=== PATIENT | female | born 1980 | race Caucasian/White ===

== ENCOUNTER → 2018-11-26 | Outpatient (CLI) | payer OTHER ==
[~2018-11-26] MED LIST: ALPR1 PO; FLUO10 PO
== END | disposition home or self-care (01) ==
LOC: LAB SHORT 12:46 → LAB EV 12:46
DX: N39.0 Urinary tract infection, site not specified (principal)
CPT/HCPCS: 87077; 87086; 87186

== ENCOUNTER 2019-04-15 16:38 | Inpatient (IN) | payer OTHER ==
[~2019-04-15] VITALS: Ht 157.5 cm; Wt 61.2 kg
[~2019-04-15 16:38] MED LIST changes: +Augmentin 500-1 EACH PO; +Norco 5-325 Ta1 EACH PO
[2019-04-15 17:25] LABS: BASOPHILS ABSOLUTE AUTO 0.09 K/mm3 (0.00-0.23); BASOPHILS PERCENT AUTO 1 % (0-2); EOSINOPHILS ABSOLUTE AUTO 0.11 K/mm3 (0.00-0.68); EOSINOPHILS PERCENT AUTO 1 % (0-6); Hematocrit 42.8 % (33.0-51.0); Hemoglobin 14.6 g/dL (11.5-16.0); IMMATURE GRAN ABSOLUTE AUTO 0.06 K/mm3 (0.00-0.10); IMMATURE GRAN PERCENT AUTO 0 % (0-1); LYMPHOCYTES ABSOLUTE AUTO 1.86 K/mm3 (0.84-5.20); LYMPHOCYTES PERCENT AUTO 11 % (21-46); MONOCYTES ABSOLUTE AUTO 0.93 K/mm3 (0.16-1.47); MONOCYTES PERCENT AUTO 6 % (4-13); Mean Corpuscular HGB 33.3 pg (26.0-34.0); Mean Corpuscular HGB Conc 34.1 g/dL (31.5-36.5); Mean Corpuscular Volume 98 fL (80-100); Mean Platelet Volume 9.9 fL (9.1-12.4); NEUTROPHILS ABSOLUTE AUTO 13.29 K/mm3 (1.96-9.15); NEUTROPHILS PERCENT AUTO 81 % (41-73); Platelet Count 289 K/mm3 (150-400); RDW Coefficient Variation 12.6 % (11.7-14.2); RDW Standard Deviation 45.6 fL (35.1-46.3); Red Blood Cell Count 4.39 M/mm3 (3.80-5.20); White Blood Cell Count 16.34 K/mm3 (4.00-11.30)
[2019-04-15 17:39] LABS: Alanine Aminotransfer (ALT/SGP 18 U/L (12-78); Albumin, Blood 4.2 g/dL (3.4-5.0); Albumin/Globulin Ratio 1.2 (0.8-1.8); Alk Phos 69 U/L (50-136); Anion Gap 5 mmol/L (6-16); Aspartate Aminotrans (AST/SGOT 14 U/L (12-37); Bilirubin, Total 0.7 mg/dL (0.1-1.0); Blood Urea Nitrogen 8 mg/dL (8-24); Bun/Creatinine Ratio 14.7 (12.0-20.0); CO2, Blood 26 mmol/L (21-32); Calcium, Blood 9.3 mg/dL (8.5-10.1); Chloride, Blood 105 mmol/L (98-108); Creatinine, Blood 0.55 mg/dL (0.40-1.00); Globulin, Blood 3.6 g/dL (2.2-4.0); Glomerular Filtration Rate >60 (60-); Glucose, Blood 87 mg/dL (70-99); Potassium, Blood 3.7 mmol/L (3.5-5.5); Sodium, Blood 136 mmol/L (136-145); Total Protein, Blood 7.8 g/dL (6.4-8.2)
--- NOTE | 2019-04-15 21:20 | NUR ---
PACU PATIENT ESTELLE PACU WELL REMAINS ON RA WITH OXYGEN SAT 98% RESP EVEN AND UNLABORED. NO NEED FOR PAIN OR NAUSEA MEDICATIONS DURING RECOVERY. DRESSING TO RIGHT HAND CD&I GOOD CAP REFIL TO FINGERS. REPORT CALLED TO MARIAMA CARPENTER
[2019-04-15] MEDS ORDERED: BUPR150ER PO (21:37)
[2019-04-15] MEDS ORDERED: LAMO25 PO (21:38)
--- NOTE | 2019-04-16 00:26 | NUR ---
POST OP: REPORT RECIEVED FROM MARKETING DIRECTOR ASSISTED LIVING KIM AT ABOUT 2127. PT TO ROOM AND ABLE TO AMBULATE TO BATHROOM, VOIDED. PT IS A/O, HR 111, OTHERWISE VSS. PT DOES REPORT PAIN AT R HAND, WILL MEDICATE. SURGICAL SITE WNL. WILL DO ADMISSION CHARTING AND ORIENT PT TO ROOM. PT AT BEDSIDE.
--- NOTE | 2019-04-16 04:45 | NUR ---
SUMMARY: NO ACUTE CHANGE SINCE ADMISSION. VSS, A/O. PT ABLE TO EAT SOME CRACKERS AND TAKE PO PAIN MED. NO NAUSEA. UP WITH SBA, VOIDING. R ARM ELEVATED. ANTIBIOTICS INFUSED. NO SAFETY CONCERNS AT THIS TIME
[2019-04-16 07:14] LABS: BASOPHILS ABSOLUTE AUTO 0.03 K/mm3 (0.00-0.23); BASOPHILS PERCENT AUTO 0 % (0-2); EOSINOPHILS PERCENT AUTO 0 % (0-6); Hemoglobin 12.7 g/dL (11.5-16.0); IMMATURE GRAN ABSOLUTE AUTO 0.05 K/mm3 (0.00-0.10); IMMATURE GRAN PERCENT AUTO 0 % (0-1); LYMPHOCYTES ABSOLUTE AUTO 0.84 K/mm3 (0.84-5.20); LYMPHOCYTES PERCENT AUTO 7 % (21-46); MONOCYTES PERCENT AUTO 4 % (4-13); Mean Corpuscular HGB 33.8 pg (26.0-34.0); Mean Corpuscular HGB Conc 34.3 g/dL (31.5-36.5); Mean Corpuscular Volume 98 fL (80-100); Mean Platelet Volume 9.6 fL (9.1-12.4); NEUTROPHILS PERCENT AUTO 89 % (41-73); Platelet Count 245 K/mm3 (150-400); RDW Coefficient Variation 12.6 % (11.7-14.2); Red Blood Cell Count 3.76 M/mm3 (3.80-5.20); White Blood Cell Count 12.82 K/mm3 (4.00-11.30)
--- NOTE | 2019-04-16 19:09 | NUR ---
SHIFT SUMMARY PAIN HAS BEEN MANAGED WITH PO PAIN MEDICATION THIS SHIFT. PT HAS ELEVATED HER R EXTREMITY FOR PAIN MANAGEMENT. PT IS INDEPENDENT IN THE ROOM. VSS. WILL MONITOR UNTIL REPORT TO ONCOMING RN.
[2019-04-17 04:42] LABS: BASOPHILS ABSOLUTE AUTO 0.07 K/mm3 (0.00-0.23); BASOPHILS PERCENT AUTO 1 % (0-2); EOSINOPHILS ABSOLUTE AUTO 0.23 K/mm3 (0.00-0.68); EOSINOPHILS PERCENT AUTO 2 % (0-6); Hematocrit 36.1 % (33.0-51.0); IMMATURE GRAN ABSOLUTE AUTO 0.03 K/mm3 (0.00-0.10); IMMATURE GRAN PERCENT AUTO 0 % (0-1); LYMPHOCYTES ABSOLUTE AUTO 2.88 K/mm3 (0.84-5.20); LYMPHOCYTES PERCENT AUTO 30 % (21-46); MONOCYTES ABSOLUTE AUTO 0.65 K/mm3 (0.16-1.47); MONOCYTES PERCENT AUTO 7 % (4-13); Mean Corpuscular HGB 33.3 pg (26.0-34.0); Mean Corpuscular HGB Conc 33.2 g/dL (31.5-36.5); Mean Corpuscular Volume 100 fL (80-100); Mean Platelet Volume 9.8 fL (9.1-12.4); NEUTROPHILS ABSOLUTE AUTO 5.75 K/mm3 (1.96-9.15); NEUTROPHILS PERCENT AUTO 60 % (41-73); Platelet Count 208 K/mm3 (150-400); RDW Coefficient Variation 12.9 % (11.7-14.2); RDW Standard Deviation 47.7 fL (35.1-46.3); White Blood Cell Count 9.61 K/mm3 (4.00-11.30)
--- NOTE | 2019-04-17 05:06 | NUR ---
SHIFT SUMMARY LYING IN SEMI FOWLERS WITH EYES CLOSED. MEDICATED FOR PAIN X3 THIS SHIFT. NO FURTHER C/O PAIN OR DISCOMFORT THIS SHIFT. DENEIS FURTHER NEEDS OR WANTS AT THIS TIME. SAFETY MEAUSRES IN PLACE. WILL GIVE HAND OFF TO ONCOMING SHIFT USING SBAR.
--- NOTE | 2019-04-17 17:58 | NUR ---
SHIFT SUMMARY PT HAS DONE WELL TODAY. HAS KEPT ARM ELEVATED ON PILLOWS, PAIN WELL MANAGED EXCEPT DURING DRSG CHANGE BY DR ARELLANO WHEN IV RESCUE PAIN MED GIVEN, TOLERATED DIET, URINE CLEAR. PLAN FOR D/C TOMORROW.
--- NOTE | 2019-04-18 06:09 | NUR ---
SHIFT SUMMARY LYING IN SEMI FOWLERS WITH EYES CLOSED. MEDICATED FOR PAIN X2. NO FURTHER C/O PAIN OR DISCOMFORT THIS SHIFT. DENIES FURTHER NEEDS OR WANTS AT THIS TIME. SAFETY MEASURES IN PLACE. WILL GIVE HAND OFF TO ONCOMING SHIFT USING SBAR.
[2019-04-18] MEDS ORDERED: Percocet 5-3251 EACH PO (17:57)
--- NOTE | 2019-04-18 18:20 | NUR ---
DISCHARGE PT HAS DONE WELL TODAY. WAITED FOR ORTHO TO CHANGE DRSG PRIOR TO D/C. F/U APPNT MADE WITH ORTHO. SCRIPTS GIVEN.
== END 2019-04-18 18:22 | disposition home or self-care (01) | DRG 855 ==
LOC: ER 16:38 → SURS 16:39 → ERHOLD 16:39 → SURS 16:39 → ER 16:39 → SURS 17:48 → ERHOLD 17:48 → SURS 19:06 → ERHOLD 21:33 → SURS 21:33 → ERHOLD 04-16 16:07 → SURS 04-16 16:07
PROVIDERS: Nurse Practitioner Acute Care; Orthopaedic Surgery; Physician Assistant; ADMIT Internal Medicine
PROC: 0PBT0ZZ Excision of Right Finger Phalanx, Open Approach (ICD-10-PCS; principal; 2019-04-15 18:30)
DX: A41.9 Sepsis, unspecified organism (principal); S61.252A Open bite of right middle finger without damage to nail, initial encounter; L03.011 Cellulitis of right finger; W54.0XXA Bitten by dog, initial encounter; Y92.9 Unspecified place or not applicable; F41.8 Other specified anxiety disorders; Z87.891 Personal history of nicotine dependence
CPT/HCPCS: 29130; 36415; 73120; 80053; 83605; 83735; 84703; 85025; 87040; 87070; 87075; 87205; 96361; 96365; 96366; 96375; 96376; 99283-25; 99284-25; A9270; A9270-GY; G0378; J0330; J0744; J1100; J1885; J2250; J2270; J2405; J2543; J2704; J3010; J7030

== ENCOUNTER → 2023-07-25 | Outpatient (CLI) | payer OTHER ==
[~2023-07-25] MED LIST changes: +BUPR150ER PO; +LAMO25 PO; +Percocet 5-3251 EACH PO
[2023-07-26 10:56] LABS: Candida species (DNA Probe) Negative (NEGATIVE); G. vaginalis (DNA Probe) Negative (NEGATIVE); T. vaginalis (DNA Probe) Negative (NEGATIVE)
[2023-07-27 03:10] LABS: CHLAMYDIA TRACHOMATIS, NAA Negative (Negative)
[2023-07-28 15:08] LABS: HPV 16 Negative (Negative); HPV 18 Negative (Negative); HPV OTHER HR TYPES Negative (Negative)
== END ==
LOC: LAB SHORT 13:33 → LAB 13:33
PROVIDERS: Nurse Practitioner Family
DX: Z01.419 Encounter for gynecological examination (general) (routine) without abnormal findings (principal); N89.8 Other specified noninflammatory disorders of vagina; Z11.3 Encounter for screening for infections with a predominantly sexual mode of transmission; Z11.51 Encounter for screening for human papillomavirus (HPV)
CPT/HCPCS: 87480; 87491; 87510; 87591; 87660